=== PATIENT | male | born 1970 | race Caucasian/White ===

== ENCOUNTER 2018-11-01 18:00 | Emergency (ER) | payer BC ==
--- OUTSIDE RECORDS SUMMARY | 2018-11-01 18:02 | XMS REPORT | Encounter Summary ---
Author Organization Unknown Address [address] [place] [address] Phone [phone] Reason for Visit Medical Complaint Instructions 1. Acute upper respiratory infection fluticasone 50 mcg/actuation nasal spray,suspension 2. Feeling feverish rapid flu (A+B) 3. Pain in throat rapid strep group A, throat Discussion Note: None recorded. Patient educational handouts: No information available. Plan of Care Patient Instructions otc claritin or zyrtec. use flonase as presribed. follow up pcp Reminders Provider Appointments None recorded. Lab Rapid Flu (A+B) 01/26/2017 [facility] Rapid Strep Group a, Throat 01/26/2017 [facility] Referral None recorded. Procedures None recorded. Surgeries None recorded. Imaging None recorded. Medications Name Start Date amlodipine 5 mg tablet fluticasone 50 mcg/actuation nasal spray,suspension [place] 2 sprays every day by intranasal route. lisinopril 20 mg tablet metoprolol tartrate 50 mg tablet Medications Administered None recorded. Vitals Height Weight BMI Blood Pressure 5 ft 8 in 205 lbs 31.2 112/78 Lab Results Date Name Result Description Value Range Status Rapid Strep Group a, Throat Result negative Swab Location Left and Right tonsillar pillars Rapid Flu (A+B) Influenza a negative Influenza B negative Allergies Name Reaction Severity Onset NKDA Problems None recorded. Procedures Date Name Performed by Tonsillectomy Information not available Vaccine List Vaccine Type tetanus immune globulin 04/09/2012 Social History None recorded. Past Encounters 01/26/2017 Acute Upper Respiratory Infection; Feeling Feverish; Pain in Throat BRENDA Michele-C: [address] [place] [address], Ph. History of Present Illness Amoyn-Kylsgemctu-Wpfqlym Reported By: Patient HPI: Location: head/sinuses, throat. Quality: sore throat, nasal/sinus congestion, dry cough. Duration: 3days. Severity: moderate. Onset/Timing: gradual. Context: no sick contacts, no foreign travel, non-smoker. Modifying factors: OTC medication. Associated Symptoms: no sputum production, no shortness of breath, no wheezing, no change in number of pillows needed to sleep at night, no sweats, no significant weight gain, no significant weight loss, no morning cough, no vomiting, no diarrhea, no rash, no nausea, no fever, no headache, sore throat, muscle aches Review of Systems:ROS as noted in the HPI Review of Systems Basic Reported By: Patient Physical Exam Adult Basic, Adult Male Complete Reported By: Patient Constitutional: General Appearance: healthy-appearing, well-nourished, well-developed. Level of Distress: NAD. Ambulation: ambulating normally Psychiatric: Mental Status: active and alert Eyes: Lids and Conjunctivae: non-injected, no discharge Jaa-Ljmj-Ltjcw-Throat: Ears: no lesions on external ear, no outer ear tenderness, EACs clear, TMs clear, TM mobility normal. Hearing: no hearing loss. Nose: no lesions on external nose, nasal discharge--purulent; congestion. Lips, Teeth, and Gums: no mouth or lip ulcers. Oropharynx: moist mucous membranes, no erythema, no exudates, tonsils not enlarged Neck: Neck: trachea midline. Lymph Nodes: no cervical LAD Lungs: Respiratory effort: no dyspnea, no tachypnea, no use of accessory muscles, no intercostal retractions. Auscultation: breath sounds normal, good air movement Cardiovascular: Heart Auscultation: RRR, no murmurs
--- OUTSIDE RECORDS SUMMARY | 2018-11-01 18:02 | XMS REPORT ---
Author Author [facility] Address Unknown Phone Unavailable Care Team Providers Care Animal Care Taker Name Role Phone Unavailable Unavailable Payers Payer Name Policy Type Policy Number Effective Date Expiration Date Problems This patient has no known problems. Allergies, Adverse Reactions, Alerts Allergy Name Allergy Type Status Severity Reaction(s) Onset Date Inactive Date Treating Clinician Comments No Known Allergies DA Active U 2018-10-31 00:00:00 No Known Allergies DA Active U 2018-03-14 00:00:00 Medications This patient has no known medications.
--- OUTSIDE RECORDS SUMMARY | 2018-11-01 18:02 | XMS REPORT | Continuity of Care Document ---
Author Author [facility] Address Unknown Phone Unavailable Problems Problem Status Onset Date Classification Date Reported Comments Source Acute upper respiratory infection 01/26/2017 Diagnosis 01/26/2017 [facility] Feeling feverish 01/26/2017 Diagnosis 01/26/2017 [facility] Pain in throat 01/26/2017 Diagnosis 01/26/2017 [facility] Medications Medication Details Route Status Patient Instructions Ordering Provider Order Date Source Amlodipine 5 MG Oral Tablet amlodipine 5 mg tablet Active [facility] Fluticasone propionate 0.05 MG/ACTUAT Metered Dose Nasal [place] fluticasone 50 mcg/actuation nasal spray,suspension [place] 2 sprays every day by intranasal route. Active [facility] Lisinopril 20 MG Oral Tablet lisinopril 20 mg tablet Active [facility] Metoprolol Tartrate 50 MG Oral Tablet metoprolol tartrate 50 mg tablet Active [facility] Allergies, Adverse Reactions, Alerts Substance Category Reaction Severity Reaction type Status Date Reported Comments Source Immunizations Immunization Date Given Site Status Last Updated Comments Source tetanus immune globulin 04/10/2012 completed [facility] Results Order Name Results Value Reference Range Date Interpretation Comments Source RESULT negative 01/26/2017 [facility] SWAB LOCATION Left and Right tonsillar pillars 01/26/2017 [facility] Influenza A negative 01/26/2017 [facility] Influenza B negative 01/26/2017 [facility] Vital Signs Vital Sign Value Date Comments Source Diastolic (mm Hg) 78 01/26/2017 [facility] Height 68 01/26/2017 [facility] Systolic (mm Hg) 112 01/26/2017 [facility] Weight 205 01/26/2017 [facility] Encounters Location Location Details Encounter Type Encounter Number Reason For Visit Attending Provider ADM Date DC Date Status Source [place] - [facility] - [id number] GarciaC: [address] [place] [address], Ph. [phone] [id number] Gilbert Parryuyen 01/26/2017 [facility] Procedures Procedure Code Date Perfomer Comments Source Tonsillectomy [facility]
--- OUTSIDE RECORDS SUMMARY | 2018-11-01 18:02 | XMS REPORT | Summary of Care ---
Author Author SUSANNA Casiano, GIAN Organization Unknown Address Unknown Phone Unavailable Care Team Providers Care Director Speech And Hearing Name Role Phone DAVID Casiano, JESSEE Unavailable Unavailable KENIA Casiano, NUPUR Unavailable Unavailable NICKI D.O., PURVI Unavailable Unavailable CE Casiano, WAYNE Unavailable Unavailable SUSANNA Casiano, GIAN Unavailable Unavailable NICKI DO UT, PURVI Unavailable Unavailable DEBRA Casiano, CLARA Unavailable Unavailable Gian Mullins MD Unavailable Unavailable Unavailable Unavailable Functional Status Name Dates Details Functional status health issues are not documented Status: Name Dates Details Cognitive status health issues are not documented Status: Problems Name Dates Details Proteinuria (791.0, R80.9) Status: Active Fatigue (780.79, R53.83) Status: Active Cold sore (054.9, B00.1) Status: Active Allergic rhinitis, seasonal (477.9, J30.2) Status: Active Headache (784.0, R51) Status: Active Dysthymic disorder (300.4, F34.1) Status: Active Personal history of gout (V12.29, Z87.39) Status: Active Loss of libido (799.81, R68.82) Status: Active Furuncle of nose (680.0, J34.0) Status: Active Pain of left hand (729.5, M79.642) Status: Active Low testosterone (790.99, R79.89) Status: Active Localized pain of left shoulder joint (719.41, M25.512) Status: Active Medication refill (V68.1, Z76.0) Status: Active Adverse effect of drug, initial encounter (E947.9, T50.905A) Status: Active Obesity (BMI 30-39.9) (278.00, E66.9) Status: Active Seasonal allergies (477.9, J30.2) Status: Active Lipoma of left shoulder (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.8, D17.22) Status: Active Podagra (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.01, M10.9) Status: Active Arthralgia of right foot (719.47, M25.571) Status: Active Acute idiopathic gout of right foot (274.01, M10.071) Status: Active NSAID long-term use (V58.64, Z79.1) Status: Active Hypertension (401.9, I10) Status: Active Hyperlipidemia (272.4, E78.5) Status: Active Anxiety and depression (300.00, F41.9) Status: Active Gout (274.9, M10.9) Status: Active Encounter for monitoring allopurinol therapy (V58.83, Z51.81) Status: Active Obstructive sleep apnea (327.23, G47.33) Status: Active Back strain (847.9, S39.012A) Status: Active Lumbar back pain with radiculopathy affecting lower extremity (724.4, M54.16) Status: Active Medications Name Dates Details Allopurinol 300 MG Oral Tablet TAKE 1 TABLET DAILY. Quantity: 90 NUPUR AQUINO M.D. Active Multi-Vitamin TABS TAKE 1 TABLET DAILY. * Refills: 0 Active AmLODIPine Besylate 10 MG Oral Tablet TAKE 1 TABLET BY MOUTH DAILY * Quantity: 90 Refills: 1 YEH D.O.PURVI * Start : 25-Apr-2017 Active Lisinopril 40 MG Oral Tablet TAKE 1 TABLET DAILY DIRECTED * Quantity: 90 Refills: 1 YEH D.OPURVI Mantilla Active ValACYclovir HCl - 1 GM Oral Tablet TAKE 1 TABLET EVERY 12 HOURS NEEDED * Quantity: 1 Refills: 2 WAYNE ENCINAS M.D. * Start : 06-Feb-2016 Active 30 Tablet Bottle Sertraline HCl - 50 MG Oral Tablet TAKE 1 TABLET DAILY * Quantity: 90 Refills: 1 YEH D.OPURVI Mantilla * Start : 14-Nov-2016 Active Testosterone Cypionate Powder * Refills: 0 YEH D.O.PURVI * Start : 25-Feb-2017 Active Lovastatin 20 MG Oral Tablet TAKE 1 TABLET DAILY AT DINNER * Quantity: 90 Refills: 1 YEH D.O.PURVI * Start : 21-Aug-2017 Active Colcrys 0.6 MG Oral Tablet Starting tomorrow, take 1 tablet twice daily. Do not take lovastatin while on co lchicine. * Quantity: 30 Refills: 0 NUPUR AQUINO M.D. * Start : 09-Sep-2017 Active Fish Oil 435 MG Oral Capsule * Refills: 0 * Start : 26-Mar-2018 Active Naproxen 250 MG Oral Tablet TAKE 1 TABLET EVERY 12-24 HOURS WITH FOOD TO PREVENT GOUT FLARES. STOP AFTER 1 MONTH. RESTART IN CASE OF FLARE AND CALL US. * Quantity: 120 Refills: 0 NUPUR AQUINO M.D. * Start : 09-Jun-2018 Active Fenofibrate 160 MG Oral Tablet TAKE 1 TABLET DAILY * Quantity: 30 Refills: 5 YEH D.OPURVI Mantilla * Start : 21-Sep-2018 Active Cyclobenzaprine HCl - 10 MG Oral Tablet TAKE 1 TABLET AT BEDTIME NEEDED. * Quantity: 10 Refills: 1 GIAN MULLINS M.D. * Start : 26-Oct-2018 Active Allergies and Adverse Reactions Name Dates Details No Known Drug Allergies (Allergy) Status: Active Procedures Procedure Dates Details [QLH] CBC (INCLUDES DIFF/PLT) Date: 17-Sep-2018 [QLH] CMP W/EGFR Date: 17-Sep-2018 [QLH] URIC ACID Date: 17-Sep-2018 MRI Spine lumbar wo contrast [id number] Date: 27-Oct-2018 History of Tonsillectomy Completed History of Hernia Repair Completed History of Surgery Vas Deferens Vasectomy Completed Immunization Name Dates Details Immunizations not documented Family History Name Dates Details No pertinent family history (V49.89, Z78.9) Comments: Family History Status: Active Social History Name Dates Details - Status: Name Dates Details Never smoker Vital Signs Date Test Result Details [id number] BP Systolic 142 mm[Hg] Status: Comments: Location: LUE; Position: Sitting BP Diastolic 97 mm[Hg] Status: Comments: Location: LUE; Position: Sitting Height 68 in Status: Weight 220.3125 lb Status: Body Mass Index Calculated 33.5 kg/m2 Status: Body Surface Area Calculated 2.13 m2 Status: Temperature 96.7 f Status: Comments: Method: Temporal Respiration Rate 16 /min Status: Physical Findings 7 Status: Comments: Pain Scale Heart Rate 83 /min Status: [id number]-[id number]:51 BP Systolic 122 mm[Hg] Status: Comments: Location: LUE; Position: Sitting BP Diastolic 77 mm[Hg] Status: Comments: Location: LUE; Position: Sitting Height 68 in Status: Weight 217.5 lb Status: Body Mass Index Calculated 33.07 kg/m2 Status: Body Surface Area Calculated 2.12 m2 Status: Temperature 97.9 f Status: Respiration Rate 16 /min Status: Heart Rate 108 /min Status: Results Date Description Value Details Results not documented Plan of Care Name Dates Details Planned Observations MRI Spine lumbar wo contrast [id number] On: 27-Oct-2018 Intent Planned Goals not documented Planned Encounters Orthopedics Referral Appointment; GIAN MULLINS M.D. On: 16-Nov-2018 10:30 Interventions Provided Labs/Procedures/Imaging* [U] XRAY SHOULDER MIN 2 VWS LEFT [id number]; Done: 01 Jun 2018 Instructions Name Dates Details Instructions not documented Encounters Appointment; WAYNE ENCINAS M.D. Encounter Diagnosis: Problem not documented On: 14-Nov-2016 14:15 Appointment; PURVI CACERES D.O. Encounter Diagnosis: Problem not documented On: 25-Feb-2017 10:30 Appointment; WAYNE ENCINAS M.D. Encounter Diagnosis: Problem not documented On: 20-Aug-2017 10:30 Appointment; WAYNE ENCIANS M.D. Encounter Diagnosis: Problem not documented On: 09-Sep-2017 12:00 Appointment; PURVI CACERES D.O. Encounter Diagnosis: Problem not documented On: 29-Sep-2017 13:30 Appointment; PURVI CACERES D.O. Encounter Diagnosis: Problem not documented On: 02-Mar-2018 13:00 Appointment; JESSEE HERNANDEZ M.D. Encounter Diagnosis: Problem not documented On: 01-Jun-2018 10:30
[2018-11-01] MEDS ORDERED: DIAZEPAM 5 MG TAB ONE (19:10)
[2018-11-01] MEDS ORDERED: KETOROLAC TROMETHAMINE 60 MG/2 ML VIAL IM ONE (19:15)
[2018-11-01] MEDS ORDERED: HYDROCODONE/APAP 10MG-325MG TAB PO ONE (19:15)
[2018-11-01] MEDS ORDERED: DIAZEPAM 2 MG TAB PO ONE (19:30)
== END 2018-11-01 20:15 | disposition home or self-care (01) ==
LOC: ER 18:00
DX: M54.42 Lumbago with sciatica, left side (principal); S39.012A Strain of muscle, fascia and tendon of lower back, initial encounter; I10 Essential (primary) hypertension
CPT/HCPCS: 99282; J1885

== ENCOUNTER → 2019-04-29 | Outpatient (CLI) | payer BC ==
[~2019-04-29] MED LIST: IOPAMIDOL 370 MG/ML 200 ML INFUS..BTL INJ ONE; SODIUM CHLORIDE 0.9% 100 ML 100 ML ONE
--- NOTE | 2019-04-29 11:57 | Diagnostic Imaging Report ---
EXAM: CTA OF THE ABDOMINAL AORTA AND PELVIC ARTERIES INDICATION: Hypertension, family history of abdominal aortic aneurysm. COMPARISON: None. TECHNIQUE: Multi-detector CT technology was employed. CTA of the abdomen and pelvis was performed after the administration of IV contrast. IV CONTRAST: 100 mL of Isovue-370 ORAL CONTRAST: None COMPLICATIONS: None RADIATION DOSE: Total DLP: 723.9 mGy*cm Estimated effective dose: (DLP x 0.015 x size factor) mSv CTDIvol has been reviewed. It is below the limits set by the Radiation Protocol Committee (RPC). For optimization of anatomic evaluation, multiplanar reconstruction, maximum intensity projections, and advanced 3-D off-line postprocessing were performed on a dedicated stand-alone workstation under the direct supervision of the interpreting physician. FINDINGS: Potential study limitations: None. VASCULAR WITH ADVANCED 3-D OFF-LINE POSTPROCESSING: The abdominal aorta is normal in course, caliber, and contour. There is no acute aortic pathology . Aortic plaques: Mild. The abdominal aorta is nonaneurysmal. The celiac axis is widely patent with conventional hepatic arterial anatomy. The superior mesenteric artery is widely patent. There are 2 left renal arteries and a single right renal artery, all of which are widely patent. The inferior mesenteric arterial origin is widely patent. The bilateral common, external, and internal iliac arteries are widely patent, as are the visualized central visceral branches of the internal iliac arteries. Mild calcified and noncalcified atherosclerotic plaque of the iliac arterial systems. The iliac arteries are nonaneurysmal. Incidental note of a circumaortic left renal vein. LOWER CHEST: Unremarkable. ABDOMEN: Hepatic parenchyma is diffusely hypoattenuating compatible with steatosis. No focal hepatic lesion or intrahepatic biliary ductal dilatation. Gallbladder, spleen, and pancreas are normal in appearance. The adrenal glands appear normal. Both kidneys are normal in size, shape, and density. There is no abnormal mass or hydronephrosis. PELVIS: There is no significant retroperitoneal adenopathy. No ascites or pneumoperitoneum. Urinary bladder is incompletely distended but otherwise unremarkable. Coarse central prostatic calcifications. Large bowel shows no distention or wall thickening normal appendix. No small bowel dilatation to suggest obstruction. BONES: No osseous destructive lesion. Mild degenerative disc changes of the lumbar spine. Surgical clips in the bilateral inguinal regions. IMPRESSION: No acute abdominal aortic pathology. Mild atherosclerotic disease without abdominal aortic aneurysm. Hepatic steatosis. Signed by: Dr. Farhat Caballero M.D. on 04/29/2019 11:53 AM
== END ==
LOC: CT 10:31
PROVIDERS: ATTEND Internal Medicine Cardiovascular Disease
DX: I10 Essential (primary) hypertension (principal); Z82.49 Family history of ischemic heart disease and other diseases of the circulatory system
CPT/HCPCS: 74174; Q9967